=== PATIENT | male | born 1965 | race Caucasian/White ===

== ENCOUNTER 2019-09-11 08:38 | Emergency (ER) | payer BC ==
[2019-09-11 08:55] VITALS: BP 144/91
[2019-09-11] MEDS ORDERED: Fluorescein Sodium TOPICAL* 1 MG TEST STRIP OPHTHALMIC ONE (10:15)
--- NOTE | 2019-09-11 10:15 | UC ---
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 Continued left eye "sore ... throbbing" pain and erythema for one day. When asked, denies blurred vision, contact lens use, discharge, or continued foreign body sensation. - History of Current Complaint Chief Complaint: UCEye Stated Complaint: LEFT EYE IRRITATION Time Seen by Provider: 09/11/19 10:11 Hx Obtained From: Patient Onset/Duration: Sudden Onset, Lasting Days - 1 Timing: Constant Severity Initially: Moderate Severity Currently: Moderate Pain Intensity: 4 Location of Injury: Conjunctiva, Sclera Associated Signs And Symptoms: Positive: Photophobia, Drainage (Clear) - Allergies/Home Medications Allergies/Adverse Reactions: Allergies Allergy/AdvReac Type Severity Reaction Status Date / Time Penicillins Allergy Hives Verified 09/11/19 08:52 Home Medications: Home Medications Azithromyxin PRAKASH (NF) [Z-Prakash (Zithromax) 250 mg tabs #6] 2 tab PO .TODAY, THEN 1 DAILY #6 tab 09/11/19 [Rx] Erythromycin OPHTH.OINT* [Ilotycin OPHTH.OINT*] 1 applic LEFT EYE TID #1 tube [Rx] Loratadine/Pseudoephedrine [Claritin-D 12 Hour] 1 tab PO Q12H PRN 09/11/19 [ History Confirmed 09/11/19] PMH/Surg Hx/FS Hx/Imm Hx Previously Healthy: Yes - Surgical History Surgical History: Yes Surgery Procedure, Year, and Place: Umbilical Herniorrhaphy, 2009, [place] - Family History Known Family History: Positive: Hypertension - Social History Occupation: Employed Full-time Alcohol Use: Occasionally Substance Use Type: None Smoking Status (MU): Current Some Day Smoker Type: Smokeless Tobacco Review of Systems All Other Systems Reviewed And Are Negative: Yes Eyes: Positive: Drainage - clear, Eye Redness, Photophobia Is Patient Immunocompromised?: No Physical Exam Triage Information Reviewed: Yes Appearance: Well-Appearing, Well-Nourished, Pain Distress Vital Signs: Initial Vital Signs Temp 98.6 F 09/11/19 08:48 Pulse 82 09/11/19 08:48 Resp 16 09/11/19 08:48 BP 144/91 09/11/19 08:48 Pulse Ox 97 09/11/19 08:48 Vital Signs Reviewed: Yes Eyes: Positive: Conjunctiva Inflamed, Discharge - clear, Other: - PERRLA, EOMI, neg hyphema ENT: Positive: Pharyngeal erythema - with pnd, Nasal congestion, Nasal drainage , TM bulging Dental Exam: Normal Neck exam: Normal Respiratory Exam: Normal Cardiovascular Exam: Normal Abdominal Exam: Normal Bowel Sounds: Positive: Present Musculoskeletal Exam: Normal Neurological Exam: Normal Psychological Exam: Normal Skin Exam: Normal Eye Complaint Course/Dx - Course Course Of Treatment: hx obtained, exam performed ,meds reviewed, wood lamp exam performed, patient has been working in the [employer] without eye protection. not sure if he got road dust in the eye. he has flushed it multiple times. also complaining of sinus pain. - Differential Dx/Diagnosis Differential Diagnosis/HQI/PQRI: Corneal Abrasion Provider Diagnosis: Corneal abrasion, left, Sinusitis Discharge ED - Sign-Out/Discharge Documenting (check all that apply): Patient Departure All imaging exams completed and their final reports reviewed: No Studies - Discharge Plan Condition: Stable Disposition: HOME Prescriptions: Azithromyxin PRAKASH (NF) [Z-Prakash (Zithromax) 250 mg tabs #6] 2 tab PO .TODAY, THEN 1 DAILY #6 tab Erythromycin OPHTH.OINT* [Ilotycin OPHTH.OINT*] 1 applic LEFT EYE TID #1 tube Patient Education Materials: Corneal Abrasion (ED) Referrals: No Primary Care Phys,NOPCP [Primary Care Provider] - Mickey Tan MD [Medical Doctor] - Shaye Cheney MD [Medical Doctor] - Additional Instructions: 1. take the medication as prescribed. 2 If not improving in the next 24 hours with the eye pain, please follow up with the referral given - Billing Disposition and Condition Condition: STABLE Disposition: Home
== END 2019-09-11 10:52 | disposition home or self-care (01) ==
LOC: UCCORT 08:38
DX: S05.02XA Injury of conjunctiva and corneal abrasion without foreign body, left eye, initial encounter (principal); J32.9 Chronic sinusitis, unspecified; F17.290 Nicotine dependence, other tobacco product, uncomplicated; X58.XXXA Exposure to other specified factors, initial encounter; Y92.9 Unspecified place or not applicable; Z88.0 Allergy status to penicillin
CPT/HCPCS: 99202; A9270-GY; G0463